=== PATIENT | female | born 2000 | race Caucasian/White ===

== ENCOUNTER 2022-12-04 22:24 | Emergency (ER) | payer MEDICAID ==
[~2022-12-04] VITALS: Ht 170.2 cm; Wt 74.4 kg
[2022-12-04 22:43] VITALS: BP 99/53; TEMP 98.1; O2SAT 98
[2022-12-04] MEDS ORDERED: HYDR28.32 TP (23:38)
[2022-12-04] MEDS: CALAMINE 118 ML BOTTLE TP PRN ×2 (23:50→23:59)
[2022-12-05] MEDS ORDERED: NAPROXEN 250 MG TABLET PO ONE
== END 2022-12-05 | disposition home or self-care (01) ==
LOC: EDBD 22:27 → ER 22:27
DX: L55.0 Sunburn of first degree (principal)